=== PATIENT | male | born 2000 | race Hispanic/Latino ===

== ENCOUNTER 2020-04-29 22:30 | Emergency (ER) | payer SELFPAY ==
[~2020-04-29] VITALS: Ht 149.9 cm; Wt 63.6 kg
[2020-04-30] MEDS ORDERED: FLONASE AL50 MCG/ACT (00:09)
[2020-04-30] MEDS ORDERED: AMOXICILLIN500 MG PO (00:09)
[2020-04-30 00:28] VITALS: BP 132/77
== END 2020-04-30 00:28 | disposition home or self-care (01) | DRG 153 ==
LOC: ED 22:30
DX: J31.0 Chronic rhinitis (principal); Z20.822 Contact with and (suspected) exposure to COVID-19